=== PATIENT | female | born 1980 | race Two or more races ===

== ENCOUNTER 2018-09-06 02:19 | Inpatient (IN) | payer OTHER ==
[~2018-09-06] VITALS: Ht 157.5 cm; Wt 2.7 kg
[2018-09-06] MEDS ORDERED: PRENATABS RX T1 EACH PO (03:11)
[2018-09-06] MEDS ORDERED: NIFE60TA3 PO (03:12)
[2018-09-06] MEDS ORDERED: INTEGRA PLUS C1 EACH PO (03:12)
== END 2018-09-08 14:16 | disposition home or self-care (01) | DRG 788 ==
LOC: LDR 02:19 → OB/GYN 11:17
PROVIDERS: ADMIT Specialist
PROC: 4A0HXFZ Measurement of Products of Conception, Cardiac Rhythm, External Approach (ICD-10-PCS; 2018-09-06)
PROC: 10D00Z1 Extraction of Products of Conception, Low, Open Approach (ICD-10-PCS; principal; 2018-09-06 09:00)
DX: O82 Encounter for cesarean delivery without indication (principal); O62.0 Primary inadequate contractions; Z3A.38 38 weeks gestation of pregnancy; Z37.0 Single live birth